=== PATIENT | female | born 1965 | race Two or more races ===

== ENCOUNTER 2018-05-15 18:01 | Emergency (ER) | payer MEDICARE, MEDICAID ==
[~2018-05-15] VITALS: Ht 165.1 cm; Wt 57.6 kg
--- NOTE | 2018-05-15 18:48 | NUR ---
PATIENT'S FATHER STEFF: [phone]
--- NOTE | 2018-05-15 19:10 | NUR ---
RECEIVED REPORT FROM BOZENA PORTER FOR [facility]IZA.
[2018-05-15 19:12] LABS: CREATININE 0.6 mg/dL (0.6-1.3); POTASSIUM 3.9 mmol/L (3.5-5.1)
--- NOTE | 2018-05-15 19:25 | NUR ---
PT RESTING IN BED WITH EYES OPEN. NO S/S OF DISTRESS NOTED. PT PLACED ON [employer] AND POX. PT SAFETY AND COMFORT MEASURES IN PLACE. 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 PT STATES SHE HAS HX OF SCHIZOPHRENIA FOR 20YEARS "EVER SINCE I STARTED TALKING TO GOD". WILL CONTINUE TO MONITOR PT
[2018-05-15] MEDS ORDERED: IV NS 0.9% 1,000 ML BAG IV ONE (19:30)
[2018-05-15 19:45] LABS: HEMATOCRIT 41 % (33-45); HEMOGLOBIN 13.9 g/dL (11.5-14.8); MEAN CORPUSCULAR VOLUME 92 fL (82-100)
[2018-05-15 19:46] LABS: EOSINOPHILS % (AUTO) 1.3 % (0.0-6.0); LYMPHOCYTES % (AUTO) 22.3 % (20.0-44.0); MEAN CORPUSCULAR HEMOGLOBIN 31 PG (26.0-33.0); MEAN CORPUSCULAR HGB CONC 34 g/dl (31.0-36.0); MONOCYTES % (AUTO) 12.2 % (2.0-12.0); NEUTROPHILS % (AUTO) 63.2 % (43.0-81.0); PLATELET COUNT (AUTO) 338 /CMM (150-450); RDW COEFFICIENT OF VARIATION 13.3 (11.5-15.0)
[2018-05-15 19:47] LABS: BASOPHILS # (AUTO) 0.1 /CMM (0.0-0.2); LYMPHOCYTES # (AUTO) 1.8 /CMM (0.8-4.8)
--- NOTE | 2018-05-15 20:13 | NUR ---
Patient discharged to home in stable condition. Written and verbal after care instructions given. Patient verbalizes understanding of instruction.IV removed. Catheter intact and site benign. Pressure and 4x4 applied to site. No bleeding noted. VSS UPON DISCHARGE
[2018-05-15 20:15] VITALS: BP 142/67
== END 2018-05-15 20:17 | disposition home or self-care (01) ==
LOC: ER 18:03
DX: E86.0 Dehydration (principal); R55 Syncope and collapse; I10 Essential (primary) hypertension; F20.9 Schizophrenia, unspecified; F17.200 Nicotine dependence, unspecified, uncomplicated; Z60.2 Problems related to living alone
CPT/HCPCS: 36415; 80048; 80305; 85025; 93005; 96360; 99285; A4606; J7030; Z7610

== ENCOUNTER 2020-05-21 22:57 | Emergency (ER) | payer MEDICARE, MEDICAID ==
[~2020-05-21] VITALS: Ht 160 cm; Wt 57.6 kg
[2020-05-21] MEDS ORDERED: TDAP [DIPH/PERTUSSIS/TET] 0.5 ML VIAL IM ONE (23:15)
[2020-05-21] MEDS: TDAP [DIPH/PERTUSSIS/TET] 0.5 ML VIAL IM ONE (23:26)
--- NOTE | 2020-05-21 23:27 | NUR ---
BACK OF HEAD CLEANED WITH STERILE WATER.
--- NOTE | 2020-05-22 00:30 | NUR ---
sonya from [facility] called; asking if pt will be sent back
[2020-05-22] MEDS ORDERED: LORAZEPAM INJ 2 MG/ML VIAL ONE (01:41)
[2020-05-22] MEDS: LORAZEPAM INJ 2 MG/ML VIAL IM ONE (02:01)
--- NOTE | 2020-05-22 04:10 | NUR ---
Magdalene guadalupe in [facility] - 05/22/20 at 0412 by ANJEL PER PIYUSH DAMON PT ACCEPTED AT [facility] BY MD LÁZARO RN FOR REPORT [phone], UNIT 2
--- NOTE | 2020-05-22 04:12 | NUR ---
PER CM CJ PT ACCEPTED [facility] BY MD SESAY, RN FOR REPORT [phone], UNIT 2
--- NOTE | 2020-05-22 04:25 | NUR ---
CALLED [facility], SCHEDULED TRANSPORT FOR [phone]
--- NOTE | 2020-05-22 06:49 | NUR ---
REPORT GIVEN TO BOZENA MONTES [facility]
--- NOTE | 2020-05-22 07:42 | NUR ---
REPORT GIVEN TO EMT FOR PT TRANSFER TO [facility].
[2020-05-22 07:55] VITALS: BP 110/78
== END 2020-05-22 07:56 ==
LOC: ER 22:59
DX: S01.01XA Laceration without foreign body of scalp, initial encounter (principal); I10 Essential (primary) hypertension; F20.9 Schizophrenia, unspecified; Z88.8 Allergy status to other drugs, medicaments and biological substances; Z60.2 Problems related to living alone; W01.0XXA Fall on same level from slipping, tripping and stumbling without subsequent striking against object, initial encounter; Y93.89 Activity, other specified; Y92.89 Other specified places as the place of occurrence of the external cause; Y99.8 Other external cause status
CPT/HCPCS: 70450; 90471; 90715; 96372; 99284; A6403; J2060